=== PATIENT | female | born 2000 | race Caucasian/White ===

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

== ENCOUNTER 2021-12-21 11:48 | Emergency (ER) | payer BC, SELFPAY ==
[2021-12-21 11:51] VITALS: BP 155/93; PULSE 97; RESP 18; TEMP 36.7; O2SAT 100
--- NOTE | 2021-12-21 12:19 | ED.SKABFB ---
HPI - Skin/Abscess/Foreign Bdy General Chief complaint: Skin/Abscess/Foreign Body Stated complaint: Rash x3 days Time Seen by Provider: 12/21/21 11:56 Source: patient History of Present Illness HPI narrative: Patient presents for a rash. Is worsening and worse over the past 3 days she has been previously prescribed topical steroids systemic steroids as well as topical antifungals without relief her symptoms so she came to the ER for further evaluation. Reports she had this rash intermittently since she was 13 years old she has previously seen dermatology with intermittent able to visualize a rash is usually resolved at the time of her appointment. Patient is unable to identify clear triggering etiology of her rash seems calm with season changes but not with every season change. Source of swelling limited to her face but this episode is spread to her arms legs and torso. She denies any fevers, cough, congestion, shortness of breath, nausea, vomiting, diarrhea. She has attempted topical Benadryl and calamine lotion as well with some relief Related Data Allergies Allergy/AdvReac Type Severity Reaction Status Date / Time No Known Allergies Allergy Verified 12/21/21 12:40 Review of Systems Review of Systems: CONSTITUTIONAL: Denies fever, chills, or sweats. EYES: Denies visual changes, redness, or discharge. ENT: Denies rhinorrhea, congestion, sore throat, or otalgia. CARDIOVASCULAR: Denies chest pain, palpitations, or edema. RESPIRATORY: Denies cough or dyspnea. GASTROINTESTINAL: Denies abdominal pain, nausea, vomiting, or diarrhea. GENITOURINARY: Denies dysuria or hematuria. SKIN: Reports rash that is itching MUSCULOSKELETAL: Denies back pain, joint pain, or myalgia. NEUROLOGIC: Denies headache, numbness, dizziness, or weakness. PSYCHIATRIC: Denies anxiety or depression. All systems reviewed & are unremarkable except as noted in HPI and below PMFSH Past Medical History Medical History (Updated 12/21/21 @ 12:21 by Camacho Currie MD) Rash Social History Social History (Updated 12/21/21 @ 12:21 by Camacho Currie MD) Occupation/Education: student Exam Narrative: GENERAL: Well-appearing, well-nourished, and in no acute distress. HEAD: Normocephalic, atraumatic. EYES: PERRLA and EOMI. ENT: Nares clear, no rhinorrhea or epistaxis. Mucous membranes moist. NECK: Supple. No masses. No JVD EXTREMITIES: Normal range of motion. No edema. SKIN: Warm, dry, no rash. Multiple areas of raised erythema with overlying excoriation no open or draining wounds. #Areas are present on the face neck chest extremities no central clearing pustules ulcerations purpura, scales. NEURO: No focal deficits. Alert and oriented x3. PSYCH: Normal mood and affect. Course Vital Signs Vital signs: Vital Signs Temperature 36.7 C 12/21/21 11:51 Pulse Rate 97 12/21/21 11:51 Respiratory Rate 18 12/21/21 11:51 Blood Pressure 155/93 H 12/21/21 11:51 Pulse Oximetry 100 12/21/21 11:51 Oxygen Delivery Room Air 12/21/21 11:51 Temperature 36.7 C 12/21/21 11:51 Pulse Rate 97 12/21/21 11:51 Respiratory Rate 18 12/21/21 11:51 Blood Pressure 155/93 H 12/21/21 11:51 Pulse Oximetry 100 12/21/21 11:51 Oxygen Delivery Room Air 12/21/21 11:51 MDM - Skin/Abscess/Foreign Bdy MDM Narrative Medical decision making narrative: H&P as above, vss, pt looks clinically well, exam multiple areas of raised erythema, labs/img considered, symptomatic relief available as needed, on reevaluation pt continues to looks clinically well. Suspect dermatitis, dns SSS, TN, erythema multiforme. plan to tx/monitor as op w/ pcm/Derm f/u findings/plan discussed with pt, pt agree/comfortable with plan, return precautions given Discharge Plan Discharge Clinical Impression: Rash Patient Disposition: Home, Self-Care Condition: Improved Instructions: Antibiotic Form, Dermatitis (ED) Additional Instructions: Please return if
== END 2021-12-21 12:40 | disposition home or self-care (01) ==
PROVIDERS: Emergency Provider Emergency Medicine
DX: R21 Rash and other nonspecific skin eruption (principal)
CPT/HCPCS: 99283